=== PATIENT | male | born 1950 | race Caucasian/White ===

== ENCOUNTER 2019-06-05 16:02 | Inpatient (IN) | payer OTHER ==
[~2019-06-05] VITALS: Ht 180.3 cm; Wt 87.6 kg
[2019-06-05] MEDS ORDERED: ALLOPURINOL 10100 M1 PO (16:51)
[2019-06-05] MEDS ORDERED: LIPITOR 20 MG T20 M1 PO (16:57)
[2019-06-05] MEDS ORDERED: CHLORTHALIDONE25 MG PO ×2 (16:57→16:58)
[2019-06-05] MEDS ORDERED: CLONAZEPAM 0.50.5 M1 PO (16:59)
[2019-06-05] MEDS ORDERED: DOXYCYCLINE 10100 MG PO (17:01)
[2019-06-05] MEDS ORDERED: GLUCOPHAGE XR500 MG PO (17:01)
[2019-06-05] MEDS ORDERED: POTASSIUM20 PO (17:02)
[2019-06-05] MEDS ORDERED: ALDACTONE50 MG PO (17:06)
[2019-06-05] MEDS ORDERED: COUMADIN 1MG TAB1 M1 PO (17:07)
[2019-06-05] MEDS ORDERED: TORSEMIDE20 MG PO (17:07)
[2019-06-05] MEDS ORDERED: COUMADIN 2 MG TA2 M1 PO (17:08)
[2019-06-05 17:23] LABS: ABSOLUTE NEUTROPHILS 5.6 thou/uL (1.4-8.2); EOSINOPHILS 0.5 % (0.0-3.0); HEMATOCRIT 39.8 % (42.0-52.0); HEMOGLOBIN 13.4 gm/dL (14.0-18.0); LYMPHOCYTES 17.6 % (24.0-44.0); MCH 31.8 pg (26.0-34.0); MCHC 33.8 g/dL (28.0-37.0); MCV 93.9 fL (80.0-100.0); MONOCYTES 8.6 % (1.0-8.0); PLATELET COUNT 152 thou/uL (150-400); POLYS 72.3 % (36.0-66.0); RBC 4.23 mil/uL (4.50-6.00); RDW 15.4 % (10.5-14.5); WBC 7.7 thou/uL (4.0-11.0)
[2019-06-05 17:38] LABS: ALBUMIN 4.2 g/dL (3.4-5.0); CALCIUM 9.4 mg/dL (8.5-10.1); POTASSIUM 3.4 mmol/L (3.5-5.1); TOTAL BILIRUBIN 1.8 mg/dL (<0.1-1.0); TOTAL PROTEIN 8.1 g/dL (6.4-8.2)
--- NOTE | 2019-06-05 17:53 | NUR ---
PATIENT A DIRECT ADMIT. ADMISSION HX AND ASSESSMENT COMPLETED. ORDERS NOTED. VSS. DENIED HAVING PAIN OR DISCOMFORT. PT ORIENTED TO THE ROOM AND THE CALL SYSTEM. WILL CONTINUE TO MONITOR.
[2019-06-05 19:23] VITALS: BP 123/62
[2019-06-06 05:11] LABS: INR 2.4; PROTIME 25.2 Seconds (9.3-11.4)
[2019-06-06 05:28] VITALS: BP 125/51
--- NOTE | 2019-06-06 06:30 | NUR ---
NO OVERNIGHT EVENTS. PT TO HAVE ROXANNE TODAY, AND HAS BEEN NPO [place]CE [place] IN PREP FOR PROCEDURE. PT WAS CONCERNED ABOUT TAKING LASIX SO SHORTLY BEFORE PROCEDURE WHERE HE WOULD NEED TO VOID DURING PROCEDURE. LASIX GIVEN A FEW HOURS EARLY, BUT PT IS STILL CONCERNED. VERIFIED THAT PT KNEW WHAT THE PROCEDURE WAS AND CONSENT SIGNED. WILL CONTINUE TO MONITOR.
--- NOTE | 2019-06-06 09:23 | EKG ---
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 : 1950 Requested By: Vik Pope Order Number: [id number] MD: Merlin Arboleda Measurements Intervals [place] Rate: 70 P: [place]: QRS: 127 QRSD: 192 T: 158 QT: 509 QTc: 550 Interpretive Statements Afib/flutter and ventricular-paced rhythm No further analysis attempted due to paced rhythm Compared to ECG 12/03/2006 11:42:10 Sinus rhythm no longer present Electronically Signed On 06-06-2019 9:22:57 CDT by Merlin Arboleda [email or web address] ��������������������������������������������� <ELECTRONICALLY SIGNED> ���������������������������������������� By: Merlin Arboleda MD, [facility] ��������������������������������������������� 06/06/19 0922 7 7 Merlin Arboleda MD, [facility] /EPI
[2019-06-06 11:43] VITALS: BP 109/56
--- NOTE | 2019-06-06 12:34 | TEE ---
[facility] [address] [place] [address] TRANSESOPHAGEAL ECHOCARDIOGRAM Name: [address] Room #: 207-P [facility] IN [facility]#: [id number] ������������� Admission: 06/05/19 ������������� Attend Phys: Vik Pope, Discharge: ��� ������������� ��� Date of : 50 Date of Service: 06/06/19 1234 �� Report #: [id number] �������� ��������������������������������������������[id number] THIS REPORT FOR: //name// APPROVED REPORT Study performed: 06/06/2019 07:35:20 EXAM: Comprehensive 2D, Doppler, and color-flow Echocardiogram Patient Location: In-Patient Room #: [facility] Status: routine BSA: 2.13 HR: 72 bpm BP: 114/55 mmHg Rhythm: Atrial Flutter Other Information Study Quality: Excellent Indications AVR Echo Enhancing Agent Indication: Rule out Shunt Agent(s) / Amount(s) Used: Agitated Saline 7 cc Procedure After obtaining informed consent, patient underwent transesophageal echo in the [employer]. Type of Sedation : Conscious Sedation Sedation was achieved intravenously with: Versed (6 mg) Fentanyl (100 mcg) Transesophageal probe was inserted and advanced into esophagus without difficulty by Merlin Arboleda MD. Echo enhancement indication: R/O Septal defect. Echo enhancement agent administered: Agitated Saline The ROXANNE was performed without complications. Throughout the procedure, the blood pressure, pulse oximetry, cardiac rhythm, and rate were monitored. The patient tolerated the procedure without adverse effects. Recovery from conscious sedation was uneventful and vital signs were stable. Left Ventricle [facility] [address] [place] [address] TRANSESOPHAGEAL ECHOCARDIOGRAM Name: [address]NA[address] Herbie Room #: 207-P [facility] IN .R.#: [id number] ������������� Admission: 06/05/19 ������������� Attend Phys: Vik Pope, Discharge: ��� ������������� ��� Date of : 50 Date of Service: 06/06/19 1234 �� Report #: [id number] �������� ��������������������������������������������[id number] The left ventricle is normal size. There is global hypokinesis of the left ventricle. There is normal left ventricular wall thickness. Left ventricular ejection fraction is moderately decreased. LVEF is 40%. Right Ventricle The right ventricle is normal size. The right ventricular systolic function is normal. Atria Left atrium is dilated. No thrombus is visualized in the left atrium or appendage, prominent pectinate muscles. Interatrial septum is intact without evidence of ASD or PFO. Right atrium is dilated. Pacing wires seen within the right heart Aortic Valve St. Chauncey bioprosthetic aortic valve is present. Moderate aortic insufficiency, probably perivalvular. There appears to be a segment of valve dehiscence in the region of the non-coronary cusp leaflet without rocking or abnormal motion of the valve; this is not the segment associated with aortic insufficiency or perivalvular leak. Cannot exlude possibility of perivalvular infection. Moderate aortic regurgitation. Mitral Valve The mitral valve is normal in structure. Mild mitral regurgitation. No evidence of mitral valve stenosis. Tricuspid Valve The tricuspid valve is normal in structure. Mild tricuspid regurgitation. Pulmonic Valve The pulmonary valve is normal in structure. There is no pulmonic valvular regurgitation. Great Vessels The ascending aorta is normal in size. IVC is normal in size and collapses >50% with inspiration. Pericardium There is no pericardial effusion. Critical Notification Physician Notified [facility] [address] [place] [address] TRANSESOPHAGEAL ECHOCARDIOGRAM Name: DOMINGOANABEL Herbie Room #: 207-P [facility] IN ..#: [id number] ������������� Admission: 06/05/19 ������������� Attend Phys: Vik Pope, Discharge: ��� ������������� ��� Date of : 50 Date of Service: 06/06/19 1234 �� Report #: [id number] �������� ��������������������������������������������[id number] <Conclusion> Left ventricular ejection fraction is moderately decreased. LVEF is 40%. Both atria are dilated. No shunting by contrast bubble injection No thrombus in the left atrium or appendage, prominent pectinate muscles. St. Chauncey bioprosthetic aortic valve is present. Moderate aortic insufficiency, probably perivalvular. There appears to be a segment of valve dehiscence in the region of the non-coronary cusp leaflet without rocking or abnormal motion of the valve; this is not the segment associated with aortic insufficiency or perivalvular leak. Cannot exlude possibility of perivalvular infection. Moderate aortic regurgitation. The mitral valve is normal in structure. Mild mitral regurgitation. There is no pericardial effusion. ��������������������������������������������� <ELECTRONICALLY SIGNED> ���������������������������������������� By: Merlin Arboleda MD, FACC ��������������������������������������������� 06/06/19 1234 1234 1234 Merlin Arboleda MD, FAC /INF
--- NOTE | 2019-06-06 14:58 | NUR ---
ASSUMED CARE @ 0700. PT ALERT AND ORIENTED. VSS. DENIED HAVING PAIN OR DISCOMFORT. HAD ROXANNE THIS AM. NO CARDIAC OR RESPIRATORY DISTRESS NOTED. WILL CONTINUE TO MONITOR.
[2019-06-06 15:35] VITALS: BP 112/60
[2019-06-06 20:12] VITALS: BP 111/53
[2019-06-07 04:16] VITALS: BP 121/79
--- NOTE | 2019-06-07 04:47 | NUR ---
ASSUMED PT CARE AT 1900. PT A/OX4, VITAL SIGNS STABLE, ASSESSMENT CHARTED. NO COMPLAINTS OF PAIN. NO COMPLAINTS OF SOB. RESTED WELL THROUGH THE NIGHT. PROGRESSING TOWARD PLAN OF CARE. WILL CONTINUE TO MONITOR.
[2019-06-07 05:25] LABS: INR 1.7; PROTIME 18.1 Seconds (9.3-11.4)
[2019-06-07 05:35] LABS: CALCIUM 9.2 mg/dL (8.5-10.1); CREATININE 0.9 mg/dL (0.7-1.3); POTASSIUM 3.5 mmol/L (3.5-5.1)
[2019-06-07 07:54] VITALS: BP 121/58
[2019-06-07 12:00] VITALS: BP 119/60
--- NOTE | 2019-06-07 15:08 | NUR ---
PT ALERT AND ORIENTED. VSS. DENIED HAVING PAIN OR DISCOMFORT. NO CARDIAC OR RESPIRATORY DISTRESS NOTED. WILL CONTINUE TO MONITOR.
[2019-06-07 15:45] VITALS: BP 123/59
[2019-06-07 19:57] VITALS: BP 117/59
--- NOTE | 2019-06-08 03:18 | NUR ---
ASSUMED PT CARE AT 1900. PT A/OX4, VITAL SIGNS STABLE, ASSESSMENT CHARTED. NO COMPLAINTS OF PAIN. RESTED WELL THROUGH THE NIGHT. NO ACUTE CHANGES THROUGH THE NIGHT. PROGRESSING TOWARD PLAN OF CARE. WILL RED TO MONITOR.
[2019-06-08 05:04] VITALS: BP 113/61
[2019-06-08 05:28] LABS: CALCIUM 9.6 mg/dL (8.5-10.1); CREATININE 0.8 mg/dL (0.7-1.3); POTASSIUM 3.8 mmol/L (3.5-5.1)
[2019-06-08 05:30] LABS: INR 1.4
[2019-06-08 08:20] VITALS: BP 117/58
[2019-06-08 11:07] VITALS: BP 109/56
[2019-06-08 15:50] VITALS: BP 114/54
--- NOTE | 2019-06-08 16:18 | NUR ---
ASSESSMENT CHARTED. PT ALERT AND ORIENTED. VSS. DENIED HAVING PAIN OR DISCOMFORT. NO CONCERNS AT THIS TIME. WILL CONTINUE TO MONITOR.
[2019-06-08 20:44] VITALS: BP 118/57
--- NOTE | 2019-06-09 03:17 | NUR ---
ASSUMED PT CARE AT 1900. PT A/OX4, VITALS SIGNS STABLE. ASSESSMENT CHARTED. NO COMPLAINTS OF PAIN. REQUESTED HIS MEDS EARLY SO HE COULD SLEEP. PT RESTED WELL THROUGH THE NIGHT. PROGRESSING WELL TOWARDS PLAN OF CARE. WILL CONTINUE TO MONITOR.
[2019-06-09 04:46] VITALS: BP 117/57
[2019-06-09 04:58] LABS: INR 1.4; PROTIME 14.4 Seconds (9.3-11.4)
[2019-06-09 07:30] VITALS: BP 122/50
[2019-06-09] MEDS ORDERED: CARVEDILOL3.125 MG PO (08:13)
[2019-06-09] MEDS ORDERED: SPIRONOLACTONE25 M1 PO (08:13)
[2019-06-09] MEDS ORDERED: COZAAR 25 MG TA25 M1 PO (08:13)
[2019-06-09] MEDS ORDERED: TORSEMIDE20 MG PO (09:12)
[2019-06-09 09:26] LABS: CREATININE 0.9 mg/dL (0.7-1.3); POTASSIUM 3.5 mmol/L (3.5-5.1)
[2019-06-09 10:08] VITALS: BP 122/50
--- NOTE | 2019-06-09 11:17 | NUR ---
ASSUMED CARE OF PT AT SHIFT CHANGE ASSESSMENT CHARTED. MEDS GIVEN PER JAN. PT ALERT AND ORIENTED, VSS, DENIES PAIN, DENIES SOB/CP, O2 SATS WNL ON RA. PT UP AD IVONE TOLERATES WELL. DC ORDERS ACKNOWLEDGED AND IMPLEMENTED. DC PAPERWORK DISCUSSED WITH PT, COMMUNICATES UNDERSTANDING. PT LEFT UNIT AT APPROX 1115 WITH SPOUSE AND ALL BELONGINGS. IV REMOVED, TELE REMOVED.
--- NOTE | 2019-06-09 11:42 | HC ---
[facility] [place] [address] CONSULTATION Name: [address] Room #: 207-P [facility] IN M.R.#: [id number] Admission: 06/05/19 ������������������ Attend Phys: Vik Pope MD, Discharge: 06/09/19 ������������������ Date of : 50 Report #: [id number] THIS REPORT FOR: //name// CC: FAM unknown Vik GÓMEZ DATE OF SERVICE: 06/06/2019 INFECTIOUS DISEASES CONSULTATION REASON FOR CONSULTATION: I was asked to evaluate concerning possible Park[place] spotted fever. HISTORY OF PRESENT ILLNESS: The patient is a 68-year-old who presents to the hospital on 06/05/2019 with congestive heart failure. Last 6 months, he has had progressive fatigue with lower extremity edema and shortness of breath. Also, has noted some ascites. In 2014, he underwent [facility]. Chauncey tissue aortic valve replacement in [place], [place]. He subsequently had a permanent pacemaker placed for sick sinus syndrome and paroxysmal atrial fibrillation. He has had issues with congestive heart failure. He undergoes yearly followup in [place]. Last year, he was noted to have mild perivalvular leak. He was told by his surgeon that he would prefer to watch it at this time. The patient has had weight gain. He has had further fatigue. He has been given Lasix and Demadex, but has still failed to improve. He was therefore recommended to be admitted for further evaluation from cardiovascular medicine service. 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 He was treated with antibiotic therapy and reported improvement. He states over the last several weeks to have very similar symptoms to this. Because of these symptoms, blood studies were obtained on 05/30/2019. His Park[place] spotted fever IgM and IgG titers were positive, 1.92, 1:256 respectively. His Lyme PCR, ehrlichia serologies were negative. His laboratory at that time showed a hemoglobin of 12.9 with a white count of 10.3, platelet count 152,000. Creatinine 0.9, alkaline phosphatase 132, bilirubin 1.4. AST and ALT normal. He was treated with doxycycline. He states he has been on this for approximately 2 days. He states while on this medication, he feels better. He reports no headache, photophobia, rash increase in his known degenerative arthritis, abdominal pain, pleuritic chest pain, fever, chills or sweats. The patient has had no recent dental work done or any other invasive procedures such as colonoscopy or cystoscopy. ALLERGIES: None known. MEDICATIONS: As noted on his MAR, which was reviewed. The doxycycline was not restarted in his hospital stay [place] [address] CONSULTATION Name: [address] Room #: 207-P [facility] IN M.R.#: [id number] Admission: 06/05/19 ������������������ Attend Phys: Vik oPpe MD, Discharge: 06/09/19 ������������������ Date of : 50 Report #: [id number] PAST MEDICAL HISTORY: Non-rheumatic aortic valve stenosis requiring bioprosthetic valve replacement, hyperlipidemia, hypertension, permanent pacemaker, congestive heart failure, history of Lyme disease and Parkston spotted fever. SOCIAL HISTORY: Past smoker. No significant alcohol intake. 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 FAMILY HISTORY: Noncontributory. He has had no significant outdoor exposure history and no recent tick exposure. Lives with his and no animals in his house. PHYSICAL EXAMINATION: VITAL SIGNS: He was afebrile and hemodynamically stable. GENERAL: He is alert, cooperative and pleasant, in no acute distress. SKIN: Without rash. No palpable adenopathy. HEENT: Eyes, without scleral icterus or petechial hemorrhages. Mouth without mucositis or petechial hemorrhages. NECK: Supple, with no thyromegaly or mass. LUNGS: Clear. HEART: Regular with soft diastolic murmur at left sternal border. No gallop or rub. ABDOMEN: Soft and nontender with no hepatosplenomegaly or mass. EXTREMITIES: 2+ peripheral edema below the waist. No clubbing or cyanosis. NEUROLOGIC: Cranial nerves intact. Strength in his upper and lower extremities normal. Mood normal. LABORATORY STUDIES: INR 2.4. Hemoglobin 13.4, white count 7.7, platelet 152,000, 73% neutrophils, 17% lymphs, 8% monocytes. ESR 11. Sodium 129, potassium 3.4, bicarbonate 31, creatinine 1. AST 30, ALT 30, alkaline phosphatase 141, bilirubin 1.8. BNP 4988. TSH 2.6. Blood cultures negative drawn today. Chest x-ray, mild cardiomegaly with no evidence of congestive heart failure or acute pulmonary process. IMPRESSION: A 68-year-old with evidence of aortic valve perivalvular leak and right-sided congestive heart failure. 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 So far, I am not convinced that we are dealing with rickettsial infection. The patient has had no ongoing fevers, rash, leukocytosis, thrombocytopenia or significant elevation in his transaminases. He also has no other signs of toxicity, although the patient does feel that his current symptoms are similar to what he experienced 15 years ago. I am concerned, however, that we may be dealing with infection causing his perivalvular leak, although he has had no evidence of embolic disease, vegetation on ROXANNE and his sedimentation rate is normal. [facility] [address] [place] [address] CONSULTATION Name: [address] Herbie Room #: 207-P [facility] IN M.R.#: [id number] Admission: 06/05/19 ������������������ Attend Phys: Vik Pope MD, Discharge: 06/09/19 ������������������ Date of : 50 Report #: [id number] Would recommend sending off PCR study for Rickettsia rickettsii. We will finish his 7-day course of doxycycline considering he has already 2 days into it. I would then monitor off antibiotics and repeat blood cultures over the next month. May need to obtain serial serologic studies. I would also, like if, possible to have his previous serologic studies from his previous diagnosis 15 years ago. This, however, likely is already discarded. ��������������������������������������������� <ELECTRONICALLY SIGNED> ���������������������������������������� By: Marin Oneal MD ��������������������������������������������� 06/09/19 1142 1523 0550 Marin Oneal MD /nt
--- NOTE | 2019-06-11 09:26 | D ---
[facility] [place] [address] DISCHARGE SUMMARY Name: [address] Herbie Room #: 207-P [facility] IN M.R.#: [id number] Admission: 06/05/19 ������������������ Attend Phys: Vik Pope MD, Discharge: 06/09/19 ������������������ Date of : 50 Report #: [id number] THIS REPORT FOR: //name// CC: FAM unknown Vik Pope [facility] COURSE: The patient is a 68-year-old male who was admitted with progressive dyspnea, shortness of breath and acute on chronic systolic heart failure as well as a perivalvular leak. History of tick-borne disease and was question whether this may have recurred. Infectious Disease has been involved. He was aggressively diuresed, and transesophageal echo was performed due to a bioprosthetic valve, felt to have a moderate perivalvular leak. There was a segment of valve dehiscence in the region of the noncoronary cusp without any rocking or abnormal motion of the valve. In fact was not associated with a perivalvular leak. Moderate aortic insufficiency was, however, noted. The ejection fraction was moderately reduced. He has been aggressively diuresed with IV Lasix. The ejection fraction in the 40% range. CV Surgery was asked for their opinion and consultation. The current thinking is that this should be left alone and may have not clinical significance, but we will have close followup regarding that valve. He will be discharged to home on fluid and sodium restriction. In addition, Aldactone 25, carvedilol 3.125 b.i.d., which we will try to increase; losartan 25, all this for the LV dysfunction and then continue allopurinol, atorvastatin 20, clonazepam, metformin, torsemide 40 mg daily, warfarin and doxycycline 100 b.i.d. for another week. They are waiting further studies, but I believe the current thinking is we do not have an active tick-borne disease issue. Chlorthalidone has been discontinued. DISCHARGE DIAGNOSES: 1. Acute on chronic systolic heart failure. 2. Moderate aortic valve insufficiency with a small area of prosthetic aortic valve dehiscence, current therapy, observation. 3. Hypertension. 4. Hypercholesterolemia. 5. Sick sinus with history of permanent pacemaker. 6. History of tick-borne disease, Cornish spotted fever. Workup thus far negative for acute infection or recurrence of tick-borne Cornish spotted fever or Lyme disease. RECOMMENDATIONS AND PLAN: As described above. Close followup will be continued. [address] [address] DISCHARGE SUMMARY Name: [address] Room #: 207-P [facility] [id number] Admission: 06/05/19 ������������������ Attend Phys: Vik Pope MD, Discharge: 06/09/19 ������������������ Date of : 50 Report #: [id number] Thank you for allowing us to assist in the care of this patient. ��������������������������������������������� <ELECTRONICALLY SIGNED> ���������������������������������������� By: Vik Pope MD, [facility] ��������������������������������������������� 06/11/19 0926 0913 0941 Vik Pope MD, [facility] /nt
== END 2019-06-09 11:15 | disposition home or self-care (01) | DRG 314 ==
LOC: 2N 16:02 → ENTRNSPT 06-09 11:06 → EDTRNSPTSTS 06-09 11:08 → 2N 06-09 11:15
PROVIDERS: Nurse Practitioner Adult Health; ADMIT Internal Medicine Cardiovascular Disease
PROC: B24BZZ4 Ultrasonography of Heart with Aorta, Transesophageal (ICD-10-PCS; principal; 2019-06-05)
DX: T82.538A Leakage of other cardiac and vascular devices and implants, initial encounter (principal); I50.23 Acute on chronic systolic (congestive) heart failure; D68.59 Other primary thrombophilia; T81.31XA Disruption of external operation (surgical) wound, not elsewhere classified, initial encounter; I11.0 Hypertensive heart disease with heart failure; I48.0 Paroxysmal atrial fibrillation; I49.5 Sick sinus syndrome; E78.5 Hyperlipidemia, unspecified; E78.00 Pure hypercholesterolemia, unspecified; E87.6 Hypokalemia; Y83.8 Other surgical procedures as the cause of abnormal reaction of the patient, or of later complication, without mention of misadventure at the time of the procedure; Z95.0 Presence of cardiac pacemaker; Z95.2 Presence of prosthetic heart valve; Z87.891 Personal history of nicotine dependence; Y92.89 Other specified places as the place of occurrence of the external cause
CPT/HCPCS: 10081; 10797

== ENCOUNTER 2020-04-17 14:44 | Inpatient (IN) | payer OTHER ==
[2020-04-17] VITALS (8 sets, daily range): BP systolic 98–114; BP diastolic 47–55
[~2020-04-17] VITALS: Ht 180.3 cm; Wt 85.6 kg
[~2020-04-17 14:44] MED LIST: ALDACTONE50 MG PO; ALLOPURINOL 10100 M1 PO; CARVEDILOL3.125 MG PO; CHLORTHALIDONE25 MG PO; CLONAZEPAM 0.50.5 M1 PO; COUMADIN 1MG TAB1 M1 PO; COUMADIN 2 MG TA2 M1 PO; COZAAR 25 MG TA25 M1 PO; DOXYCYCLINE 10100 MG PO; GLUCOPHAGE XR500 MG PO; LIPITOR 20 MG T20 M1 PO; POTASSIUM20 PO; SPIRONOLACTONE25 M1 PO; TORSEMIDE20 MG PO
[2020-04-17] MEDS ORDERED: MELATONIN10 M3 PO (16:49)
--- NOTE | 2020-04-17 17:06 | NUR ---
DIRECT ADMIT FROM [facility]. PT CARE ASSUMED AT 1550. ASSESSMENT CHARTED. MEDICATION CHARTED. GI BLEED, MALAISE. PT ARRIVED WITH 1 UNIT RBC'S RUNNING; TUBING NOT COMPATIBLE. DR HASKINS WANTS RBC TO RUN UNTIL COMPLETE. HX OF ETOH.
--- NOTE | 2020-04-17 18:04 | NUR ---
PT CARE ASSUMED AT 1550. ASSESSMENT CHARTED. MEDICATION CHARTED. 1 UNIT RBC RUNNING UNTIL EMPTY PER DR HASKINS; HALF FULL OF 1800. TUBING NOT COMPATIBLE.
[2020-04-17 20:37] LABS: ABSOLUTE RETIC COUNT 0.0818 10^6/uL; MCH 35.3 pg (26.0-34.0); MCHC 34.3 g/dL (28.0-37.0); MCV 103.1 fL (80.0-100.0); OBSERVED RETIC COUNT 5.58 % (0.6-2.6); PLATELET COUNT 163 thou/uL (150-400); RBC 1.47 mil/uL (4.50-6.00); RDW 16.6 % (10.5-14.5); WBC 8.7 thou/uL (4.0-11.0)
[2020-04-17 20:40] LABS: HEMATOCRIT 15.1 % (42.0-52.0); HEMOGLOBIN 5.2 gm/dL (14.0-18.0)
[2020-04-17 20:50] LABS: ALBUMIN 3.1 g/dL (3.4-5.0); CALCIUM 8.8 mg/dL (8.5-10.1); CREATININE 2.6 mg/dL (0.7-1.3); PHOSPHORUS 3.6 mg/dL (2.5-4.9); TOTAL BILIRUBIN 0.4 mg/dL (0.2-1.0)
[2020-04-17 20:57] LABS: ABSOLUTE NEUTROPHILS 7.1 thou/uL (1.4-8.2)
[2020-04-17 20:59] LABS: ANISOCYTOSIS 2+; MACROCYTES 1+; PLATELET ESTIMATE NORMAL
[2020-04-17 21:06] LABS: % SATURATION 24 % (20-39); IRON 60 ug/dL (65-175); TIBC 255 ug/dL (250-450)
[2020-04-18] VITALS (9 sets, daily range): BP systolic 103–126; BP diastolic 42–79
[2020-04-18 03:20] LABS: PLATELET COUNT 151 thou/uL (150-400)
[2020-04-18 03:22] LABS: ABSOLUTE NEUTROPHILS 4.9 thou/uL (1.4-8.2); BASOPHILS 0.6 % (0.0-2.0); EOSINOPHILS 2.3 % (0.0-3.0); LYMPHOCYTES 19.2 % (24.0-44.0); MCH 34.6 pg (26.0-34.0); MCHC 34.3 g/dL (28.0-37.0); MONOCYTES 10.4 % (1.0-8.0); POLYS 67.5 % (36.0-66.0); RBC 1.72 mil/uL (4.50-6.00); RDW 16.4 % (10.5-14.5); WBC 7.3 thou/uL (4.0-11.0)
[2020-04-18 03:28] LABS: HEMATOCRIT 17.4 % (42.0-52.0)
[2020-04-18 03:33] LABS: INR 1.2
[2020-04-18 03:42] LABS: ALBUMIN 3.1 g/dL (3.4-5.0); CALCIUM 8.7 mg/dL (8.5-10.1); CREATININE 2.3 mg/dL (0.7-1.3); POTASSIUM 4.4 mmol/L (3.5-5.1); TOTAL BILIRUBIN 0.6 mg/dL (0.2-1.0)
--- NOTE | 2020-04-18 05:20 | NUR ---
PT IS ALERT AND ORIENTED X4. LUNGS ARE CLEAR TO DIMINISHED. INFUSING 2ND UNIT OF BLOOD FOR LOW HEMOGLOBIN UP TO 6.0 NOW CURRENTLY. PT VOIDS PER URINAL AT BEDSIDE. ABDOMEN IS ROUND AND BOWEL SOUNDS POSITIVE X4. QUADRANTS. BEDSIDE COMMODE AT BEDSIDE IF NEEDED. DENIES ANY PAIN AT THIS TIME. IF STOOL NOTED NEED TO COLLECT OCCULT AND SENT TO LAB. NO NEW ORDERS AT THIS TIME PER NURSING
[2020-04-18 09:37] LABS: ABSOLUTE NEUTROPHILS 5.3 thou/uL (1.4-8.2); BASOPHILS 0.6 % (0.0-2.0); EOSINOPHILS 1.8 % (0.0-3.0); HEMATOCRIT 20.1 % (42.0-52.0); MCH 34.1 pg (26.0-34.0); MCHC 34.7 g/dL (28.0-37.0); MCV 98.2 fL (80.0-100.0); MONOCYTES 10.2 % (1.0-8.0); PLATELET COUNT 154 thou/uL (150-400); POLYS 74.4 % (36.0-66.0); RBC 2.05 mil/uL (4.50-6.00); RDW 17.2 % (10.5-14.5); WBC 7.1 thou/uL (4.0-11.0)
[2020-04-18 11:35] LABS: FOLIC ACID 49.3 ng/mL (8.6-58.9)
[2020-04-18 16:25] LABS: URINE BILIRUBIN NEGATIVE (Negative); URINE BLOOD NEGATIVE (Negative); URINE CLARITY CLEAR; URINE COLOR YELLOW; URINE GLUCOSE-RANDOM* NEGATIVE (Negative); URINE KETONES NEGATIVE (Negative); URINE LEUKOCYTES NEGATIVE (Negative); URINE NITRITE NEGATIVE (Negative); URINE PROTEIN (DIPSTICK) NEGATIVE (Negative); URINE UROBILINOGEN 0.2 E.U./dl (0.2-1.0)
[2020-04-18 16:27] LABS: URINE CREATININE-RANDOM* 30.8 mg/dL; URINE PROTEIN-RANDOM* <6 mg/dL (<11.9); URINE SODIUM-RANDOM* 63 mmol/L
--- NOTE | 2020-04-18 19:22 | NUR ---
PT CARE ASSUMED AT 0700. ASSESSMENTS CHARTED. MEDICATION CHARTED. COLONOSCOPY TOMORROW. NPO AFTER 0000. GOLYTELY AT BEDSIDE PT INSTRUCTED. PT FINISHED 2ND OF 2 UNITS RBC AT 0730.
[2020-04-19] VITALS (7 sets, daily range): BP systolic 110–132; BP diastolic 42–75
[2020-04-19 05:32] LABS: CALCIUM 8.5 mg/dL (8.5-10.1); CREATININE 1.2 mg/dL (0.7-1.3)
--- NOTE | 2020-04-19 07:17 | NUR ---
ASSESSMENT DOCUMENTED.PT BEEN RESTING IN NO ACUTE DISTRESS.A/OX4/VSS.COMPLETED BOWEL PREP,CLEAR THIS AM.NPO AFTER MIDNOC.POC IS TO HAVE COLONOSCPY TODAY.WILL CONT TO MONITOR PER POC.
--- NOTE | 2020-04-19 09:30 | NUR ---
chart review. pt is going to go for colonscopy today. cm tried calling pt in room, no answer. will cont following as needed for dcp.
--- NOTE | 2020-04-19 12:35 | 2DMMODE ---
[facility] [address] [place] [address] 2 D/M-MODE ECHOCARDIOGRAM Name: [address]ANB[address] L[address] Room #: 201-P ADM IN M.R.#: [id number] Admission: 04/17/20 Attend Phys: Tita Pennington Discharge: Date of : 50 Report #: [id number] THIS REPORT FOR: cc: [facility] - Clinic physician unknown [facility] - Clinic physician unknown Tanmay Khan MD ~ APPROVED REPORT Study performed: 04/19/2020 11:20:44 EXAM: Comprehensive 2D, Doppler, and color-flow Echocardiogram Patient Location: Bedside Room #: 203 Status: routine BSA: 2.06 HR: 69 bpm BP: 121/42 mmHg Rhythm: Atrial Fibrillation Other Information Study Quality: Good Indications Aortic valve replacement; looking for severity of perivalvular leak, anemia. Hx: CHF, PAF, pacemaker, HTN, HLP, DM. 2D Dimensions RVDd: 51.84 mm IVSd: 11.00 (7-11mm) LVDd: 59.39 mm PWd: 11.40 (7-11mm) Ascending Ao: 41.48 (22-36mm) LVDs: 46.22 (25-40mm) Aortic Root: 35.41 mm Volumes Left Atrial Volume (Systole) Single Plane 4CH: 107.11 mL Single Plane 2CH: 90.96 mL LA ESV Index: 52.00 mL/m2 Aortic Valve AoV Peak Nacho.: 2.81 m/s AO Peak Gr.: 31.58 mmHg LVOT Max P.83 mmHg AO Mean Gr.: 15.80 mmHg [facility] [address] [address] 2 D/M-MODE ECHOCARDIOGRAM Name: [address]NA[address] Room #: 201-P [facility]#: [id number] Admission: 04/17/20 Attend Phys: Tita Pruitt Discharge: Date of : 50 Report #: [id number] AO V2 Mean: 1.89 m/s LVOT Max V: 1.31 m/s AO V2 VTI: 61.94 cm Mitral Valve MV Decel. Time: 70.09 ms MV E Max Nacho.: 1.44 m/s Pulmonary Valve PV Peak Nacho.: 0.88 m/s PV Peak Gr.: 3.11 mmHg Tricuspid Valve TR Peak Nacho.: 3.70 m/s RAP Estimate: 10.00 mmHg TR Peak Gr.: 55.00 mmHg PA Pressure: 65.00 mmHg Left Ventricle Left ventricle is mildly dilated. There is normal left ventricular wall thickness. Left ventricular systolic function is mild to moderately decreased. LVEF is 40-45%. This study is not technically sufficient to allow evaluation of the LV diastolic function due to atrial fibrillation. Right Ventricle Right ventricle is dilated. The right ventricular systolic function is normal. Pacemaker lead is present in the right ventricle. Atria Left atrium is severely dilated. Right atrium is moderately dilated. Aortic Valve A [employer] Bioprosthetic aortic valve is present. Moderate aortic indufficiency; probably perivalvular. ROXANNE from 2019 reports segment of valve dihiscence. Peak pressure gradient through the valve is 32mmHg and a mean of 16mmHg. Mitral Valve Mitral valve leaflets are mildly thickened. Mild mitral annular calcification. Moderate mitral regurgitation. No evidence of mitral valve stenosis. Tricuspid Valve The tricuspid valve is normal in structure. Moderate tricuspid regurgitation. Estimated PAP is 65mmHg. Pulmonic Valve [facility] [place] [address] 2 D/M-MODE ECHOCARDIOGRAM Name: [address] Room #: 201-P [facility] IN M.R.#: [id number] Admission: 04/17/20 Attend Phys: Tita Pruitt Discharge: Date of : 50 Report #: [id number] The pulmonary valve is normal in structure. Mild pulmonic regurgitation. Great Vessels The aortic root is normal in size. Ascending aorta is dilated at 4.1. IVC is dilated and collapses >50% with inspiration. Pericardium There is no pericardial effusion. <Conclusion> Left ventricle is mildly dilated. LVEF is 40-45%. Right ventricle is dilated. The right ventricular systolic function is normal. Pacemaker lead is present in the right ventricle. Left atrium is severely dilated. Right atrium is moderately dilated. A [employer] Bioprosthetic aortic valve is present. Moderate aortic indufficiency; probably perivalvular. ROXANNE from 2019 reports segment of valve dihiscence. Peak pressure gradient through the valve is 32mmHg and a mean of 16mmHg. Mitral valve leaflets are mildly thickened. Mild mitral annular calcification. Moderate mitral regurgitation. The tricuspid valve is normal in structure. Moderate tricuspid regurgitation. Estimated PAP is 65mmHg. Ascending aorta is dilated at 4.1. There is no pericardial effusion. <ELECTRONICALLY SIGNED> By: Tanmay Khan MD 04/19/20 1233 1233 1233 Tanmay Khan MD /INF
[2020-04-19 12:53] LABS: HEMATOCRIT 21.1 % (42.0-52.0); HEMOGLOBIN 7.1 gm/dL (14.0-18.0); MCH 33.8 pg (26.0-34.0); MCHC 33.5 g/dL (28.0-37.0); MCV 100.7 fL (80.0-100.0); RBC 2.1 mil/uL (4.50-6.00); RDW 17.7 % (10.5-14.5); WBC 7.8 thou/uL (4.0-11.0)
--- NOTE | 2020-04-19 16:26 | NUR ---
ASSUMMED PT CARE AT APPROXIMATELY 0700. PT A&O X4. ASSESSMENT CHARTED. FALL PRECAUTIONS IN PLACE. PT DENIES HAVING CHEST PAIN. PT DENIES HAVING SOB. PT DENIES HAVING ACUTE PAIN. EDUCATED PT ABOUT POC. PT STATED UNDERSTANDING AND DENIED HAVING FURTHER QUESTIONS. PT HAD EGD AND COLONOSCOPY PROCEDURE TODAY. SPOKE C MANISHA PRATER NP REGAURDING RESULTS AND PT'S HGB LEVEL. MANISHA PRATER NP STATED UNDERSTANDING AND DENIED HAVING NEW ORDERS. VITAL SIGNS STABLE. BLOOD SUGARS STABLE. PT COMFORTABLE. PT AMBULATES STEADY C STANDBY ASSIST. PT DENIES HAVING FURTHER CONCERNS.
[2020-04-20 05:13] LABS: MCHC 33.5 g/dL (28.0-37.0)
--- NOTE | 2020-04-20 05:18 | NUR ---
ASSUMED PT CARE AT 1900. PT IS ALERT AND ORIENTED. NO SIGN OF DISTRESS NOTED IN PT. DENIES ANY PAIN. CALL LIGHT WITHIN REACH, FALL PRECAUTION IN PLACE. ASSESSMENT COMPLETED AND DOCUMENTED. SCHEDULED MEDS ADMINISTERED TO PT. TOLERATED PO INTAKE, PT IS STABLE THROUGHTHE NIGHT. VITAL SIGNS STABLE. CONTINUE TO MONITOR PATIENT. NO FURTHER NEEDS AT THIS TIME.
[2020-04-20 05:20] LABS: MCH 34.2 pg (26.0-34.0); MCV 102.1 fL (80.0-100.0); RBC 1.86 mil/uL (4.50-6.00); RDW 17.9 % (10.5-14.5); WBC 7.8 thou/uL (4.0-11.0)
[2020-04-20 05:36] VITALS: BP 116/54
[2020-04-20 05:41] LABS: HEMATOCRIT 18.9 % (42.0-52.0); HEMOGLOBIN 6.3 gm/dL (14.0-18.0)
[2020-04-20 07:34] LABS: CALCIUM 8.3 mg/dL (8.5-10.1); CREATININE 1.1 mg/dL (0.7-1.3); POTASSIUM 4.1 mmol/L (3.5-5.1)
[2020-04-20 07:49] VITALS: BP 126/48
[2020-04-20 07:51] VITALS: BP 114/82; BP 139/54
--- NOTE | 2020-04-20 10:37 | NUR ---
ASSUMED CARE PT SHIFT CHANGE. ASSESSMENT CHARTED.MEDS GIVEN PER JAN. PT ALERT AND ORIENTED.VSS. DENIES PAIN. DENIES CP/SOB. DC ORDERS ACKNOWLEDGED AND IMPLEMENTED. DISCUSSED PAPERWORK WITH PT, COMMUNICATES UNDERSTANDING. IV REMOVED. TELE REMOVED. PT LEFT UNIT WITH ALL BELONGINGS.
[2020-04-20 11:45] VITALS: BP 111/48
[2020-04-20 15:54] VITALS: BP 109/49
--- NOTE | 2020-04-20 17:07 | PATH ---
[facility] [address] [address] PATHOLOGY RPT PROCEDURE Name: YANG VELEZ Herbie Room #: 201-P [facility] IN M.R.#: [id number] Admission: 04/17/20 Date of : 50 Discharge: Report #: [id number] Path Case #: [id number] [facility] Accession Number: [id number] . 01 Material submitted: . PART A: stomach - BIOPSY OF GASTRITIS R/O H. PYLORI PART B: esophagus - BIOPSY OF DISTAL ESOPHAGUS R/O FUENTES'S. Modifiers: distal PART C: colon - POLYP AT 20CM PART D: colon - POLYP AT PROXIMAL ASCENDING COLON. Modifiers: proximal, ascending PART E: colon - POLYP AT MID ASCENDING COLON. Modifiers: mid, ascending PART F: colon - POLYP AT DISTAL TRANSVERSE COLON X2. Modifiers: distal, transverse . 01 Clinical history: . anemia . 02 Diagnosis: A. Gastric mucosa, gastritis, endoscopic biopsy: - Mild chronic gastritis. - Negative for intestinal metaplasia or atrophy. - Negative for Helicobacter pylori (properly-controlled immunohistochemical stain performed). . B. Gastroesophageal mucosa, distal esophagus rule out Fuentes's, endoscopic biopsy: - Specialized columnar epithelium (gastric cardia-type mucosa) with intestinal metaplasia, consistent with Fuentes's metaplasia; negative for dysplasia. - Focal squamous mucosa showing mild esophagitis. . C. Polyp, at 20 cm, endoscopic biopsy: - Tubular adenoma. - Negative for high grade dysplasia. . D. Polyp, at proximal ascending colon, endoscopic biopsy: - Tubular adenoma, multiple fragments. - Negative for high grade dysplasia. . E. Polyp, at mid ascending colon, endoscopic biopsy: - Tubular adenoma. - Negative for high grade dysplasia. . F. Polyp x2, at distal transverse colon, endoscopic biopsy: - One fragment showing tubular adenoma without high grade dysplasia. - One fragment showing hyperplastic polyp without dysplasia. . [facility] [address] [place] [address] PATHOLOGY RPT PROCEDURE Name: YANG VELEZ Room #: 201-P [facility].#: [id number] Admission: 04/17/20 Date of : 50 Discharge: Report #: [id number] Path Case #: [id number] (IUV:mml; 04/20/2020) [facility] 04/20/2020 [facility] Local . 02 Electronically signed: . Barbie Hale MD, Pathologist NPI- [id number] . 01 Gross description: . A. The specimen is received in formalin labeled "Yang Velez, BX of gastritis rule out H. pylori" and consists of fragments of pink-aguirre tissue measuring 1.7 x 0.3 x 0.2 cm in aggregate which are entirely submitted in A1. . B. The specimen is received in formalin labeled "Yang Velez, BX of distal esophagus to rule out Fuentes's" and consists of fragments of pink-aguirre tissue measuring 1.4 x 0.3 x 0.3 cm in aggregate which are entirely submitted in B1. . C. The specimen is received in formalin labeled "Yang Velez, polyp at 20 cm" and consists of multiple fragments of aguirre tissue measuring 1.7 x 0.9 x 0.3 cm in aggregate which are entirely submitted in C1. . D. The specimen is received in formalin labeled "Yang Velez, polyp at proximal ascending colon" and consists of multiple fragments of aguirre tissue measuring 1.8 x 0.9 x 0.3 cm in aggregate which are entirely submitted in D1. . E. The specimen is received in formalin labeled "Yang Velez, polyp at mid ascending colon"and consists of a polypoid segment of aguirre tissue measuring 0.6 x 0.4 x 0.3 cm which is entirely submitted in E1. . F. The specimen is received in formalin, labeled "Yang Velez, polyp at distal transverse colon x2" and consists of multiple fragments of white-aguirre tissue measuring 0.6 x 0.5 x 0.2 cm in aggregate which are entirely submitted in F1. (RINKU; 04/19/2020) JFQ/CHELITA 04/19/2020 [facility] Local . 02 Pathologist provided ICD-10: K29.50, K22.70, D12.6, D12.2, D12.3 . 02 CPT . 562859, 856204, 678849, 921554, 150080, 369665, I69812 Specimen Comment: A courtesy copy of this report has been sent to [phone] Specimen Comment: [id number] Specimen Comment: Report sent to / DR HASKINS [address] [address] PATHOLOGY RPT PROCEDURE Name: YANG VELEZ Room #: 201-P ADM IN M.R.#: [id number] Admission: 04/17/20 Date of : 50 Discharge: Report #: [id number] Path Case #: [id number] Performed at: [address] [facility] [address], [place], [place] [id number] MD Moses Love MD Phone: [phone] Performed at: [address] [facility] [address] [id number] MD Barbie Hale MD Phone: [phone]
--- NOTE | 2020-04-20 17:12 | NUR ---
ASSUMED CARE PT SHIFT CHANGE. ASSESSMENTS CHARTED BY THIS NURSE AND NURSE ORIENTEE ARCHANA. PT ALERT AND ORIENTED.VSS. DENIES PAIN. O2 SATS WNL ON ROOM AIR. PT TRANSFUSED WITH 1 UNIT PRBC THIS AM. PT SEEN BY GI- M2 CAPSULE STUDY ORDERED. PT UP SBA TOLERATING WELL. URINE OUTPUT ADEQUATE. PT DID NOT PASS BLOODY STOOLS THIS SHIFT. NO SIGNS OF BLEEDING ELSEWHERE. PT CURRENTLY SITTING UP IN BED EATING DINNER DENYING OF NEEDS. WILL CONTINUE TO MONITOR PT AND FOLLOW POC. WILL PASS ON REPORT TO NOC RN.
[2020-04-20 19:31] VITALS: BP 117/51
[2020-04-21 04:47] VITALS: BP 113/49
--- NOTE | 2020-04-21 05:38 | NUR ---
ASSUMED PT CARE AT 1900. PT IS ALERT AND ORIENTED. NO SIGN OF DISTRESS NOTED IN PT. PT IS AMBULATORY. ASSESSMENT COMPLETED AND DOCUMENTED. DENIES ANY PAIN. SCHEDULED MEDS ADMINISTERED TO PT. TOLERATED PO INTAKE. CONTINUE TO MONITOR PT. NO FURTHER NEEDS AT THIS TIME
[2020-04-21 05:43] LABS: HEMATOCRIT 22.5 % (42.0-52.0); HEMOGLOBIN 7.8 gm/dL (14.0-18.0); MCH 33.6 pg (26.0-34.0); MCHC 34.6 g/dL (28.0-37.0); MCV 97.3 fL (80.0-100.0); RBC 2.31 mil/uL (4.50-6.00); RDW 18.6 % (10.5-14.5); WBC 7.7 thou/uL (4.0-11.0)
[2020-04-21 07:26] VITALS: BP 118/48
--- NOTE | 2020-04-21 09:18 | HC ---
[facility] [place] [address] CONSULTATION Name: DOMNIGOANABEL D Room #: 201-P ADM IN M.R.#: [id number] Admission: 04/17/20 Attend Phys: Tita Pennington Discharge: Date of : 50 Report #: [id number] THIS REPORT FOR: cc: [facility] - Clinic physician unknown [facility] - Clinic physician unknown Mariaa Hua MD ~ CC: NICOL Pennington REASON FOR CONSULTATION: Elevated creatinine. REASON FOR PRESENTATION: Weakness and not feeling well. HISTORY OF PRESENT ILLNESS: This is a 69-year-old with extensive past medical history including and not limited to cardiomyopathy with an ejection fraction of around 40%. He is status post bioprosthetic valve placement. This was a while ago in [place], [place]. He is known to have paroxysmal AFib with sick sinus syndrome, status post pacemaker insertion. He does not have any kidney issues that he is aware of. In fact, his creatinine back in 2019 was within the normal range. [facility] reporting that he has been feeling extremely weak and lethargic, and was found to have very significant anemia with a hemoglobin value of 5.2. He was admitted to further evaluate. He denies hematemesis or melena. On arrival to the Emergency Room, the patient was found to have a creatinine of 2.6 that has gone down to 2.3. His blood pressure was little on the low side. He denies any urinary symptoms. The patient was transfused and his hemoglobin has picked up. He is currently being investigated for his anemia and I was asked to evaluate his renal function. ALLERGIES: None. PAST MEDICAL HISTORY: Extensive and includes the followin. Cardiomyopathy with an ejection fraction of around 40%. 2. Hyperlipidemia. 3. Hypertension. 4. 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 5. Diabetes mellitus. 6. Gout. MEDICATIONS: 1. Warfarin. 2. Atorvastatin. 3. Carvedilol. 4. Losartan. 5. Torsemide. 6. Metformin. [address] [address] CONSULTATION Name: [address] Room #: 201-P [facility] IN ..#: [id number] Admission: 04/17/20 Attend Phys: Tita Pennington Discharge: Date of : 50 Report #: [id number] OTHER NONE RELEVANT PAST MEDICAL HISTORY: He tells me that he had history of [place], Lyme disease. REVIEW OF SYSTEMS: GENERAL: No fever or chills. CARDIOVASCULAR: No chest pain or palpitation. PULMONARY: No cough or hemoptysis. GASTROINTESTINAL: No nausea or vomiting. GENITOURINARY: No frequency, no urgency. NEUROLOGICAL: Extreme weakness including his lower extremities. SOCIAL HISTORY: Denies drug or alcohol abuse. PHYSICAL EXAMINATION: VITAL SIGNS: Blood pressure is marginal at 120/57. HEAD AND NECK: No jugular venous distention. CHEST: No crackles. CARDIOVASCULAR: No rub. ABDOMEN: Soft, nontender. LOWER EXTREMITIES: No edema. LABORATORY VALUES: Revealed the following: Sodium is 141, potassium is 4.4, BUN is 111, creatinine is 2.3, hemoglobin was 5.2 yesterday and is up to 7.0. IMPRESSION AND PLAN: 1. Acute anemia. 2. Acute kidney injury. 3. History of bioprosthetic valve. 4. Cardiomyopathy. 5. We will start the appropriate investigation for his acute kidney injury, but this seems to be all prerenal. Given his marginal blood pressure, I will discontinue spironolactone and Cozaar. 6. Anemia workup. 7. Gentle IV fluid. 8. Expect his renal function to continue to improve. 9. GI consultation. 10. We will continue to follow. <ELECTRONICALLY SIGNED> By: Mariaa Hua MD 04/21/20 0918 0947 1008 Mariaa Hua MD /nt
--- NOTE | 2020-04-21 09:49 | NUR ---
AAOX4. CALM, COOPERATIVE. NO C/O. DENIES CP. NO BM YET TODAY. V-PACED PER TELE. LABS NOTED, HGB 7.8. WILL CONTINUE TO FOLLOW CLOSELY.
[2020-04-21 10:55] VITALS: BP 108/46
[2020-04-21 15:44] VITALS: BP 117/52
--- NOTE | 2020-04-21 16:51 | NUR ---
PT CARE ASSUMED APPROX 1600. PT ALERT AND ORIENTED X4. DENIES PAIN AND SOA. VSS. UP WITH STEADY GAIT. TOLERATING POC. DENIES QUESTIONS OR CONCERNS REGARDING POC. NO DISTRESS NOTED.
--- NOTE | 2020-04-21 17:52 | P ---
[facility] [place] [address] PROCEDURE REPORT Name: ANAB[address] L[address] Herbie Room #: 201-P [facility] IN M.R.#: [id number] Admission: 04/17/20 Attend Phys: Tita Pennington Discharge: Date of : 50 Report #: [id number] THIS REPORT FOR: cc: [facility] - Clinic physician unknown [facility] - Clinic physician unknown Mj Washington MD ~ CC: [facility] unknown Tita Pennington INPATIENT COLONOSCOPY REPORT BRIEF HISTORY: The patient is a 69-year-old male who was admitted with anemia and Hemoccult-positive stools and history of GI bleeding, on anticoagulation. PREOPERATIVE DIAGNOSES: Anemia and gastrointestinal bleeding. POSTOPERATIVE DIAGNOSES: 1. Multiple colon polyps. 2. Small to moderate internal hemorrhoids. MEDICATIONS: Deep sedation with propofol per anesthesia. SPECIMENS: 1. Polyp from 20 cm. 2. Proximal ascending colon polyp. 3. Mid ascending colon polyp. 4. Distal colon diminutive polyps x 2. MEDICATIONS: Deep sedation with propofol. ESTIMATED BLOOD LOSS: 3 mL. PROCEDURE: Colonoscopy to cecum and terminal ileum with snare polypectomy and biopsy. FINDINGS: Prior to propofol sedation, procedure of colonoscopy discussed with the patient as well as potential risks and its complications. He indicates he understands and desires to proceed. DESCRIPTION OF PROCEDURE: With the patient in left lateral decubitus position, digital examination was completed, which revealed no abnormalities. Subsequently, the Olympus video colonoscope was introduced into the rectum, advanced under direct vision to the cecum and done with minimal difficulty. The cecum was identified by the ileocecal valve and the appendiceal orifice. I was able to visualize the distal 10-12 cm of the ileum. There was no evidence of blood or bleeding lesions or potential bleeding lesions. At that point, the scope was slowly withdrawn and careful circumferential views were obtained. For [facility] [address] [place] [address] PROCEDURE REPORT Name: ANAB[address] L[address] Room #: 201-P [facility] IN .R.#: [id number] Admission: 04/17/20 Attend Phys: Tita Pennington Discharge: Date of : 50 Report #: [id number] the most part, the prep was good. There were some limitations in the proximal colon. We cleaned up as well as possible, but not every last bit could be removed. Reasonably good views were obtained for the most part. As we withdrew the scope, a 5-7 mm sessile polyp was seen in the proximal ascending colon and removed by cold snare polypectomy. In the mid ascending colon, a 6-8 mm polyp was seen and removed by cold snare polypectomy and recovered. No additional abnormalities were noted until the rectum was reached and no abnormalities were seen in the rectum. Upon retroflexion, small internal hemorrhoids were seen. Scope was withdrawn. The patient tolerated the procedure well. CONDITION OF THE PATIENT UPON DISCHARGE: Following procedure, the patient drowsy, aroused, conversant and will be discharged home when fully ambulatory. I have instructed the patient and family at the time of discharge. We will follow up on the pathology of the polyps; however, these lesions are relatively small and probably not responsible for his significant GI bleeding or blood loss. Therefore, I think he would benefit from further evaluation such as an M2 capsule study. We will follow up on pathology. If 3 or more polyps are adenomas, return in 3 years, otherwise return in 5 years. This is the patient's first colonoscopy. Withdrawal time from the cecum was 14 minutes 51 seconds. <ELECTRONICALLY SIGNED> By: Mj Washington MD 04/21/20 1752 0946 [id number] Mj Washington MD /nt
--- NOTE | 2020-04-21 17:52 | P ---
[facility] [place] [address] PROCEDURE REPORT Name: ANAB[address] L[address] Room #: 201-P [facility] IN M.R.#: [id number] Admission: 04/17/20 Attend Phys: Tita Pennington Discharge: Date of : 50 Report #: [id number] THIS REPORT FOR: cc: [facility] - Clinic physician unknown [facility] - Clinic physician unknown Mj Washington MD ~ CC: NICOL unknown Tita Pennington INPATIENT UPPER ENDOSCOPY BRIEF HISTORY: The patient is a 69-year-old male who had bloody stools in [place] last winter, he had an upper endoscopy. He does not recall specific findings. He was to have a colonoscopy, but because his was undergoing cancer treatment, he canceled that procedure. He was transferred to [facility] with marked anemia, Hemoccult positive stools and markedly elevated BUN. PREOPERATIVE DIAGNOSIS: Recurrent gastrointestinal bleeding. POSTOPERATIVE DIAGNOSES: 1. Diffuse gastritis without obvious bleeding. 2. A 3 cm sliding type hiatus hernia. 3. 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 MEDICATIONS: Deep sedation with propofol per anesthesia. SPECIMENS: 1. Biopsies of gastritis. 2. Biopsies of distal esophagus, rule out Chery. ESTIMATED BLOOD LOSS: 3 mL. PROCEDURE: EGD with biopsy. FINDINGS: Prior to propofol sedation, procedure of upper endoscopy was discussed with the patient as well as potential risks and its complications. He indicates he understands and desires to proceed. DESCRIPTION OF PROCEDURE: With the patient in left lateral decubitus position, the Olympus video endoscope was inserted in the cervical esophagus under direct vision without difficulty. Examination of this organ through its entire style revealed normal esophageal mucosa down the squamocolumnar junction. The squamocolumnar junction was very irregular. There was the appearance of gastric type mucosa and a probable 3 cm segment of Chery's esophagus. There were multiple squamous islands and very irregular Z-line. The mucosa was examined with white light as well as narrow banded imaging and no ulcers, strictures, masses, or bleeding lesions were seen. Biopsies were obtained. The mucosa was [facility] [address] [place] [address] PROCEDURE REPORT Name: A[address] L[address] Room #: 201-P [facility] IN ..#: [id number] Admission: 04/17/20 Attend Phys: Tita Pennington Discharge: Date of : 50 Report #: [id number] flat. The scope was advanced and a 3 cm sliding type hiatus hernia was encountered. Mucosa and hernia was unremarkable. The scope was advanced fully into the stomach, was examined on end view as well as retroflexed views. There was a pattern of diffuse gastritis in the antrum as well as the body and fundus of the stomach with patchy erythema. There was an occasional erosion, but no ulcers were seen. Upon retroflexion, no mass lesions were seen. Multiple biopsies were obtained. The pylorus, duodenal bulb, and postbulbar duodenal sweep were inspected and noted to be unremarkable. At that point, the scope was slowly withdrawn and careful circumferential views confirmed the above findings. The patient tolerated the procedure well. Following procedure, he was drowsy and prepared for upper endoscopy. Obvious bleeding site was not identified. Proceed with colonoscopy at this time. <ELECTRONICALLY SIGNED> By: Mj Washington MD 04/21/20 1752 0915 [id number] Mj Washington MD /nt
[2020-04-21 20:17] VITALS: BP 119/42
[2020-04-22 04:55] VITALS: BP 113/52
--- NOTE | 2020-04-22 05:16 | NUR ---
ASSUMED PT CARE AT 1900. PT IS ALERT AND ORIENTED. NO SIGN OF DISTRESS NOTED IN PT. DENIES ANY PAIN. PT IS AMBULATORY. VITAL SIGNS STABLE. PT VERBALIZED THAT HE IS NOT TOO HAPPY ABOUT TRANSFERRING TO A DIFFERENT HOSPITAL. HE WAS LOOKING FORWARD TO GOING HOME. ASSESSEMENT COMPLETED AND DOCUMENTED. SCHEDULED MEDS ADMINISTERED TO PT. DENIES ANY FURTHER NEEDS AT THIS TIME.
[2020-04-22 05:39] LABS: HEMATOCRIT 22.4 % (42.0-52.0); HEMOGLOBIN 7.7 gm/dL (14.0-18.0); MCH 33.4 pg (26.0-34.0); MCHC 34.3 g/dL (28.0-37.0); MCV 97.3 fL (80.0-100.0); RBC 2.3 mil/uL (4.50-6.00); RDW 18.1 % (10.5-14.5); WBC 8.2 thou/uL (4.0-11.0)
[2020-04-22 06:29] LABS: CALCIUM 7.7 mg/dL (8.5-10.1); CREATININE 1.2 mg/dL (0.7-1.3); POTASSIUM 3.7 mmol/L (3.5-5.1)
[2020-04-22 07:10] VITALS: BP 113/67
[2020-04-22] MEDS ORDERED: FLOMAX0.4 MG PO (07:54)
[2020-04-22] MEDS ORDERED: PANTOPRAZOLE SO40 M1 PO (07:55)
[2020-04-22 11:04] VITALS: BP 113/67
--- NOTE | 2020-04-22 12:07 | NUR ---
Transfer request initiated with [facility] for double balloon endoscopy. Pt accepted under Dr. Song Pickett rm [id number]. Pt updated at bedside and agreeable. Transfer form signed. Nursing aware and they have given report. [facility] contacted for first available. Pt to notify his . Rad uploaded to the cloud and chart copy ready to be sent with the pt. All parties aware of the dc plan to acute inpt at [facility].
--- NOTE | 2020-04-22 13:14 | NUR ---
ASSESSMENT DOCUMENTED, VSS, AND AFEBRILE. REPORT GIVEN TO RECIEVING ELY SALAMANCA FROM [facility], AND PATIENT KEPT NPO PER HER REQUEST. WAITING FOR TRANSPORTATION TO TRANFER PATIENT.
== END 2020-04-22 16:02 | disposition short-term general hospital (02) | DRG 377 ==
LOC: 2N 14:44
PROVIDERS: Hospitalist; Internal Medicine; Nurse Practitioner; Nurse Practitioner Adult Health; Nurse Practitioner Family; ADMIT Hospitalist; ATTEND Hospitalist
PROC: 0DBL8ZZ Excision of Transverse Colon, Via Natural or Artificial Opening Endoscopic (ICD-10-PCS; principal; 2020-04-17)
PROC: 0DB68ZX Excision of Stomach, Via Natural or Artificial Opening Endoscopic, Diagnostic (ICD-10-PCS; principal; 2020-04-17)
PROC: 0DBK8ZZ Excision of Ascending Colon, Via Natural or Artificial Opening Endoscopic (ICD-10-PCS; principal; 2020-04-17)
PROC: 30233N1 Transfusion of Nonautologous Red Blood Cells into Peripheral Vein, Percutaneous Approach (ICD-10-PCS; principal; 2020-04-17)
PROC: 0DB38ZX Excision of Lower Esophagus, Via Natural or Artificial Opening Endoscopic, Diagnostic (ICD-10-PCS; principal; 2020-04-17)
PROC: 4B02XSZ Measurement of Cardiac Pacemaker, External Approach (ICD-10-PCS; 2020-04-19)
DX: K29.71 Gastritis, unspecified, with bleeding (principal); E43 Unspecified severe protein-calorie malnutrition; N17.0 Acute kidney failure with tubular necrosis; I42.9 Cardiomyopathy, unspecified; D68.9 Coagulation defect, unspecified; D62 Acute posthemorrhagic anemia; I50.22 Chronic systolic (congestive) heart failure; E78.5 Hyperlipidemia, unspecified; E11.9 Type 2 diabetes mellitus without complications; M10.9 Gout, unspecified; K44.9 Diaphragmatic hernia without obstruction or gangrene; K63.5 Polyp of colon; K64.8 Other hemorrhoids; F43.10 Post-traumatic stress disorder, unspecified; I49.5 Sick sinus syndrome; Z20.828 Contact with and (suspected) exposure to other viral communicable diseases; I25.10 Atherosclerotic heart disease of native coronary artery without angina pectoris; I35.0 Nonrheumatic aortic (valve) stenosis; D36.9 Benign neoplasm, unspecified site; N40.0 Benign prostatic hyperplasia without lower urinary tract symptoms; K22.70 Barrett's esophagus without dysplasia; I48.0 Paroxysmal atrial fibrillation; I11.0 Hypertensive heart disease with heart failure; Z79.01 Long term (current) use of anticoagulants; Z80.0 Family history of malignant neoplasm of digestive organs; Z95.0 Presence of cardiac pacemaker; Z95.2 Presence of prosthetic heart valve; Z71.41 Alcohol abuse counseling and surveillance of alcoholic
CPT/HCPCS: 10081; 62110; 62900; 70005

== ENCOUNTER → 2020-07-29 | Outpatient (CLI) | payer OTHER ==
[~2020-07-29] MED LIST changes: +FLOMAX0.4 MG PO; +MELATONIN10 M3 PO; +PANTOPRAZOLE SO40 M1 PO
== END ==
LOC: SJCVC 11:47
PROVIDERS: ATTEND Internal Medicine Cardiovascular Disease
DX: I11.0 Hypertensive heart disease with heart failure (principal); I50.23 Acute on chronic systolic (congestive) heart failure; I48.0 Paroxysmal atrial fibrillation; I35.0 Nonrheumatic aortic (valve) stenosis; I49.5 Sick sinus syndrome; D68.59 Other primary thrombophilia; Z95.0 Presence of cardiac pacemaker; Z95.2 Presence of prosthetic heart valve; Z79.899 Other long term (current) drug therapy; Z87.891 Personal history of nicotine dependence; Z98.890 Other specified postprocedural states

== ENCOUNTER → 2021-03-31 | Outpatient (CLI) | payer OTHER | LOC: SJCVCIMAG 08:37 | PROVIDERS: ATTEND Internal Medicine Cardiovascular Disease | DX: I08.3 Combined rheumatic disorders of mitral, aortic and tricuspid valves (principal); I25.10 Atherosclerotic heart disease of native coronary artery without angina pectoris; I48.91 Unspecified atrial fibrillation; E78.00 Pure hypercholesterolemia, unspecified; I42.9 Cardiomyopathy, unspecified; E11.22 Type 2 diabetes mellitus with diabetic chronic kidney disease; I13.0 Hypertensive heart and chronic kidney disease with heart failure and stage 1 through stage 4 chronic kidney disease, or unspecified chronic kidney disease; I50.21 Acute systolic (congestive) heart failure; N18.30 Chronic kidney disease, stage 3 unspecified; I49.5 Sick sinus syndrome; E78.5 Hyperlipidemia, unspecified; Z95.0 Presence of cardiac pacemaker; Z95.2 Presence of prosthetic heart valve; Z79.84 Long term (current) use of oral hypoglycemic drugs; Z79.899 Other long term (current) drug therapy; Z87.891 Personal history of nicotine dependence; Z86.19 Personal history of other infectious and parasitic diseases ==

== ENCOUNTER → 2021-07-27 | Outpatient (CLI) | payer OTHER | LOC: SJCVC 09:15 | PROVIDERS: ATTEND Internal Medicine Cardiovascular Disease | DX: I48.91 Unspecified atrial fibrillation (principal); I35.0 Nonrheumatic aortic (valve) stenosis; I49.5 Sick sinus syndrome; I13.0 Hypertensive heart and chronic kidney disease with heart failure and stage 1 through stage 4 chronic kidney disease, or unspecified chronic kidney disease; N18.9 Chronic kidney disease, unspecified; I50.9 Heart failure, unspecified; I42.9 Cardiomyopathy, unspecified; E78.00 Pure hypercholesterolemia, unspecified; D68.59 Other primary thrombophilia; Z86.19 Personal history of other infectious and parasitic diseases; Z79.899 Other long term (current) drug therapy; Z87.891 Personal history of nicotine dependence; Z72.89 Other problems related to lifestyle ==